=== PATIENT | female | born 1975 | race African-American/Black ===

== ENCOUNTER → 2016-10-22 | Outpatient (CLI) | payer OTHER | LOC: COL.RAD 10:01 | DX: N83.292 Other ovarian cyst, left side (principal); R10.2 Pelvic and perineal pain ==

== ENCOUNTER → 2017-01-11 | Outpatient (CLI) | payer OTHER | LOC: COL.RAD 09:20 | DX: D25.9 Leiomyoma of uterus, unspecified (principal); N85.8 Other specified noninflammatory disorders of uterus; N85.4 Malposition of uterus ==

== ENCOUNTER 2018-01-03 18:05 | Emergency (ER) | payer OTHER ==
[~2018-01-03] VITALS: Ht 162.6 cm; Wt 72.7 kg
[2018-01-03 18:08] VITALS: BP 144/84; TEMP 98.3
[2018-01-03] MEDS ORDERED: FLEXERIL 1010 MG/TAB PO (19:31)
[2018-01-03 19:48] VITALS: PULSE 77
== END 2018-01-03 19:48 | disposition home or self-care (01) ==
LOC: COL.ER 18:05
DX: S16.1XXA Strain of muscle, fascia and tendon at neck level, initial encounter (principal); V43.52XA Car driver injured in collision with other type car in traffic accident, initial encounter

== ENCOUNTER 2019-08-05 23:18 | Emergency (ER) | payer OTHER ==
[~2019-08-05] VITALS: Ht 162.6 cm; Wt 75.0 kg
[~2019-08-05 23:18] MED LIST: FLEXERIL 1010 MG/TAB PO
[2019-08-05 23:20] VITALS: TEMP 98.3
[2019-08-05 23:50] LABS: BASO % 0.5 % (0.0-2.0); EOS # 0.1 (0.0-0.7); EOS % 1.7 % (0-4.0); GRAN # 4.5 (1.4-6.5); HEMATOCRIT 37.6 % (37.0-47.0); HEMOGLOBIN 11.6 g/dl (12.5-16.0); LYMPH # 3.1 (1.2-3.4); MEAN CELL VOLUME 73 fl (80.0-100.0); MEAN CORPUSCULAR HEMOGLOBIN 23 pg (27.0-31.0); MEAN CORPUSCULAR HGB CONC 31 g/dl (33.0-37.0); MEAN PLATELET VOLUME 10.7 fl (7.4-10.4); MONO # 0.6 (0.1-0.6); MONO % 7.6 % (1.7-9.3); PLATELET COUNT 212 K/mm3 (130-400); RED BLOOD COUNT 5.15 M/mm3 (4.10-5.30)
[2019-08-06 00:11] LABS: PROTHROMBIN TIME 11.6 SECONDS (9.7-12.8)
[2019-08-06 00:18] LABS: ALANINE AMINOTRANSFERASE 14 U/L (9-52); ALBUMIN 4.1 gm/dL (3.5-5.0); ALKALINE PHOSPHATASE 70 U/L (50-136); ANION GAP 9 mmol/L (7-16); AST,SGOT 20 U/L (15-37); BILIRUBIN,TOTAL 0.1 mg/dL (0.0-1.0); BLOOD UREA NITROGEN 13 mg/dL (7-17); CALCIUM 9.5 mg/dL (8.4-10.2); CARBON DIOXIDE 28 mmol/L (22-30); CHLORIDE 100 mmol/L (98-107); CREATININE, serum 0.62 (0.52-1.25); GLUCOSE 93 mg/dL (74-106); POTASSIUM 3.5 mmol/L (3.4-5.0); SODIUM 138 mmol/L (137-145); TOTAL PROTEIN 7.7 gm/dL (6.4-8.2)
[2019-08-06 00:33] LABS: TROPONIN-I < 0.012 ng/mL (0.000-0.035)
[2019-08-06 02:18] LABS: LIPASE 36 U/L (23-300)
[2019-08-06 02:33] LABS: TROPONIN-I < 0.012 ng/mL (0.000-0.035)
[2019-08-06] MEDS ORDERED: PEPCID 20MG TAB20 MG PO (02:42)
[2019-08-06 02:54] VITALS: BP 150/95; PULSE 52
== END 2019-08-06 02:54 | disposition home or self-care (01) ==
LOC: COL.ER 23:18
PROVIDERS: Emergency Medicine
DX: K21.9 Gastro-esophageal reflux disease without esophagitis (principal); Z90.710 Acquired absence of both cervix and uterus

== ENCOUNTER 2019-12-04 23:11 | Emergency (ER) | payer OTHER ==
[~2019-12-04] VITALS: Ht 162.6 cm; Wt 77.3 kg
[~2019-12-04 23:11] MED LIST changes: +PEPCID 20MG TAB20 MG PO
[2019-12-04 23:15] VITALS: TEMP 99
[2019-12-04] MEDS ORDERED: PRIL40 PO (23:29)
[2019-12-04] MEDS ORDERED: PROFERRIN ES12 MG PO (23:29)
[2019-12-05 00:03] LABS: BASO # 0.1 (0.0-0.2); BASO % 0.6 % (0.0-2.0); EOS # 0.1 (0.0-0.7); EOS % 1.2 % (0-4.0); GRAN # 3.4 (1.4-6.5); GRAN % 44.6 % (42.2-75.2); HEMATOCRIT 38.5 % (37.0-47.0); HEMOGLOBIN 11.8 g/dl (12.5-16.0); LYMPH # 3.5 (1.2-3.4); LYMPH % 45.1 % (20.0-51.0); MEAN CELL VOLUME 73 fl (80.0-100.0); MEAN CORPUSCULAR HEMOGLOBIN 22 pg (27.0-31.0); MEAN CORPUSCULAR HGB CONC 31 g/dl (33.0-37.0); MEAN PLATELET VOLUME 10.6 fl (7.4-10.4); MONO # 0.7 (0.1-0.6); MONO % 8.4 % (1.7-9.3); PLATELET COUNT 210 K/mm3 (130-400); RED BLOOD COUNT 5.31 M/mm3 (4.10-5.30); REDCELL DISTRIBUTION WIDTH-CV 15.1 % (11.5-14.5)
[2019-12-05 00:16] LABS: ALANINE AMINOTRANSFERASE 15 U/L (4-34); ALBUMIN 4.2 gm/dL (3.5-5.0); ALKALINE PHOSPHATASE 75 U/L (50-136); ANION GAP 11 mmol/L (7-16); AST,SGOT 20 U/L (15-37); BILIRUBIN,TOTAL 0.2 mg/dL (0.0-1.0); BLOOD UREA NITROGEN 9 mg/dL (7-17); CALCIUM 9.6 mg/dL (8.4-10.2); CARBON DIOXIDE 22 mmol/L (22-30); CHLORIDE 106 mmol/L (98-107); CREATININE, serum 0.64 (0.52-1.25); GLUCOSE 116 mg/dL (74-106); LIPASE 48 U/L (23-300); POTASSIUM 3.7 mmol/L (3.4-5.0); SODIUM 140 mmol/L (137-145); TOTAL PROTEIN 7.7 gm/dL (6.4-8.2)
[2019-12-05 00:22] LABS: C-REACTIVE PROTEIN < 0.5 mg/dL (0.0-0.9)
[2019-12-05 00:25] LABS: TROPONIN-I < 0.012 ng/mL (0.000-0.035)
[2019-12-05 00:41] VITALS: BP 137/88
[2019-12-05] MEDS ORDERED: PROTONIX 40MG T40 MG PO (00:44)
[2019-12-05] MEDS ORDERED: CARAFATE 1GM1 G PO (00:44)
[2019-12-05 00:57] VITALS: PULSE 63
== END 2019-12-05 00:57 | disposition home or self-care (01) ==
LOC: COL.ER 23:11
PROVIDERS: Emergency Medicine
DX: K22.4 Dyskinesia of esophagus (principal); K21.9 Gastro-esophageal reflux disease without esophagitis; D64.9 Anemia, unspecified

== ENCOUNTER → 2020-10-21 | Outpatient (CLI) | payer OTHER ==
[~2020-10-21] MED LIST changes: +CARAFATE 1GM1 G PO; +IRON TABLETS325 MG PO; +OMEGA-31 SGL PO; +PERCOCET 325 MG1 TA2 PO; +PRIL40 PO; +PROFERRIN ES12 MG PO; +PROMETHAZINE12.5 M5 PO; +PROTONIX 40MG T40 MG PO; +VITAMIN D 400400 IU PO; +ZOFRAN ODT4 MG PO
== END ==
LOC: COL.RAD 10:30
DX: E04.1 Nontoxic single thyroid nodule (principal)

== ENCOUNTER 2020-11-28 10:30 | Outpatient (RCR) | payer OTHER ==
[~2020-11-28 10:30] MED LIST changes: -IRON TABLETS325 MG PO; -OMEGA-31 SGL PO; -PERCOCET 325 MG1 TA2 PO; -PROMETHAZINE12.5 M5 PO; -VITAMIN D 400400 IU PO; -ZOFRAN ODT4 MG PO
== END 2021-01-13 | disposition still patient (30) ==
LOC: WSC
DX: M25.552 Pain in left hip (principal); M54.9 Dorsalgia, unspecified

== ENCOUNTER → 2020-12-19 | Outpatient (CLI) | payer OTHER ==
[~2020-12-19] MED LIST changes: +IRON TABLETS325 MG PO; +OMEGA-31 SGL PO; +PERCOCET 325 MG1 TA2 PO; +PROMETHAZINE12.5 M5 PO; +VITAMIN D 400400 IU PO; +ZOFRAN ODT4 MG PO
== END ==
LOC: MC.RAD 10:31
DX: Z12.31 Encounter for screening mammogram for malignant neoplasm of breast (principal)

== ENCOUNTER 2021-07-15 10:07 | Day surgery (SDC) | payer BC ==
[2021-07-15] VITALS (11 sets, daily range): BP systolic 116–142; BP diastolic 68–87; PULSE 70–95; TEMP 98–98.5
[~2021-07-15] VITALS: Ht 162.6 cm; Wt 78.6 kg
[~2021-07-15 10:07] MED LIST changes: -IRON TABLETS325 MG PO; -OMEGA-31 SGL PO; -PERCOCET 325 MG1 TA2 PO; -PROMETHAZINE12.5 M5 PO; -VITAMIN D 400400 IU PO; -ZOFRAN ODT4 MG PO
[2021-07-15] MEDS ORDERED: VITAMIN D 400400 IU PO (10:50)
[2021-07-15] MEDS ORDERED: OMEGA-31 SGL PO (10:50)
[2021-07-15] MEDS ORDERED: IRON TABLETS325 MG PO (10:51)
--- NOTE | 2021-07-15 15:00 | NUR ---
returned to room per bed from PACU, awake and alert, IV infusing and placed on pump at 75ml/hr, is sleepy but does arouse and open her eyes after calling her name a couple of times, SCDS on bilaterally, denies needs at this time
--- NOTE | 2021-07-15 15:30 | NUR ---
appears less drowsy than when returned to room, full assessment completed, see interventions for further info,
--- NOTE | 2021-07-15 15:30 | NUR ---
c/o pain and requesting pain med, medicated with scheduled toradol and tylenol 1000mg
--- NOTE | 2021-07-15 16:10 | NUR ---
called nurse to room and stated she was having pain in left upper shoulder/chest area, explained to her this is normal pain it is air that is trapped, will assist out of bed to ambulate in the nagel
--- NOTE | 2021-07-15 16:15 | NUR ---
resting with eyes closed
--- NOTE | 2021-07-15 16:45 | NUR ---
appears to be dozing, denies needs to void at this time
--- NOTE | 2021-07-15 17:45 | NUR ---
sitting up in bed using incentive spirometer
--- NOTE | 2021-07-15 18:30 | NUR ---
up to bathroom and voided, then ambulated to end of nagel and back to room, clear liquid tray ordered
--- NOTE | 2021-07-15 18:57 | NUR ---
bedside shift report given to MATIAS Vance
--- NOTE | 2021-07-15 20:00 | NUR ---
PATIENT IS ALERT AND ORIENTED X4. LEAVING BEDSIDE. PATIENT HAS IV TO RIGHT HAND AND LEFT WRIST. PATIENT STATES PAIN IS 8/10. PAIN MEDS GIVEN PER ORDERS AND K PAD GIVEN TO PATIENT. PATIENT ALREADY UP TO BATHROOM TO VOID AND WALKING. STEADY GAIT, INDEPENDENT IN ROOM. PATIENT HAS 6 LAP SITES TO ABDOMEN. CDI, OPEN TO AIR. PATIENT ON CLEAR LIQUID DIET AND ERAS PROTOCOL. PATIENT HAS SCDS TO BILATERAL LOWER EXTREMITIES. PATIENT DENIES FURTHER NEEDS AT THIS TIME. CALL LIGHT WITHIN REACH. HEAD TO TOE ASSESSMENT COMPLETE.
[2021-07-16 04:15] VITALS: BP 139/81; PULSE 88; TEMP 98.2
--- NOTE | 2021-07-16 06:18 | NUR ---
PATIENT SLEPT MOST OF NIGHT. PAIN MEDS GIVEN PER ORDERS. PATIENT UP TO BATHROOM THROUGHOUT NIGHT. NO FURTHER NEEDS AT THIS TIME. WILL REPORT TO DAYSHIFT.
[2021-07-16 07:17] LABS: BASO % 0.2 % (0.0-2.0); GRAN # 8.7 K/mm3 (1.4-6.5); GRAN % 77.4 % (42.2-75.2); HEMOGLOBIN 11.1 g/dl (12.5-16.0); LYMPH # 1.6 K/mm3 (1.2-3.4); LYMPH % 14.3 % (20.0-51.0); MEAN CELL VOLUME 71 fl (80.0-100.0); MEAN CORPUSCULAR HEMOGLOBIN 23 pg (27.0-31.0); MEAN CORPUSCULAR HGB CONC 32 g/dl (33.0-37.0); MEAN PLATELET VOLUME 10.7 fl (7.4-10.4); MONO # 0.9 K/mm3 (0.1-0.6); MONO % 7.7 % (1.7-9.3); PLATELET COUNT 194 K/mm3 (130-400); REDCELL DISTRIBUTION WIDTH-CV 15.2 % (11.5-14.5)
[2021-07-16 07:18] LABS: HEMATOCRIT 34.8 % (37.0-47.0)
[2021-07-16 07:32] LABS: CALCIUM 8.9 mg/dL (8.4-10.2); CREATININE, serum 0.67 mg/dL (0.57-1.11); MAGNESIUM 1.7 mg/dL (1.6-2.6); PHOSPHOROUS 2.7 mg/dL (2.3-4.7); POTASSIUM 3.8 mmol/L (3.5-4.5)
[2021-07-16 07:38] VITALS: BP 133/72; PULSE 78; TEMP 98.6
--- NOTE | 2021-07-16 09:00 | NUR ---
Pt doing well this morning. She is sitting up in the chair, present in the room. She does have pain complaints, medication given. She is tolerating clear liquids, INT IV fluids. Discussed that the collar feller would be by to educate on home diet. No needs, call light within reach
--- NOTE | 2021-07-16 10:02 | NUR ---
[place] met with the patient and her , Osmin Laws (ph#[phone]), to discuss discharge plan. The patient lives in [place] with Osmin and her two daughters. She reports independence with ADLs and does not have any DME. The patient's PCP is Dr. Solomon Robledo and she receives her medications from [facility]. She reports no difficulties obtaining her meds. The patient does not have a DPOA-HC, but she was interested in obtaining a form. [place] provided. The patient plans to return home with her family upon discharge. No additional needs at this time. *Discharge plan: home with family*
[2021-07-16] MEDS ORDERED: PERCOCET 325 MG1 TA2 PO (11:13)
[2021-07-16] MEDS ORDERED: ZOFRAN ODT4 MG PO (11:13)
[2021-07-16] MEDS ORDERED: PROMETHAZINE12.5 M5 PO (11:14)
[2021-07-16 11:39] VITALS: BP 134/86; PULSE 60; TEMP 98.1
--- NOTE | 2021-07-16 12:24 | NUR ---
Reviewed discharge instructions with pt and her . All questions answered. INTs removed and pt escorted out
--- NOTE | 2021-07-16 13:45 | NUR ---
Initial visit; Patient thanked Occup Ther for looking in on her and offering prayer and God's blessings.
== END 2021-07-16 12:26 | disposition home or self-care (01) ==
LOC: SDCO 10:07 → SURG 15:00 → SDCO 07-16 12:26
PROVIDERS: Surgery
DX: K21.00 Gastro-esophageal reflux disease with esophagitis, without bleeding (principal); K44.9 Diaphragmatic hernia without obstruction or gangrene; Z79.899 Other long term (current) drug therapy
CPT/HCPCS: OP; A9284; C1781; J1885; J3010; J7120